=== PATIENT | male | born 1955 | race Caucasian/White ===

== ENCOUNTER 2023-05-08 18:22 | Inpatient (IN) | payer MEDICARE, OTHER ==
[~2023-05-08] VITALS: Ht 182.9 cm; Wt 98.5 kg
[~2023-05-08 18:22] MED LIST: CARDIZEM CD120 MG PO; CETIRIZINE; EXCEDRIN 250 MG1 TAB PO; FLONASE NASAL S16 GM NS; VICODIN 5/5001 UDTAB PO; WARFARIN SODIUM2 MG PO
[2023-05-14] VITALS (8 sets, daily range): BP systolic 113–126; BP diastolic 71–84; PULSE 106–111; TEMP 97.7–98.6
--- NOTE | 2023-05-14 09:06 | NUR ---
PT ON THE FLOOR
--- NOTE | 2023-05-14 09:42 | NUR ---
PT CHANGED INTO GOWN AND PERSONAL BELONGINGS IN ROOM. ASSESSMENTS DONE. PT DENEIS PAIN OR NEEDS AT THIS TIME. RESPIRATORY AT BEDSIDE FOR EKG. THIS NURSE ATTEMPT IV 2 TIMES WITH NOT SUCCESS, SEA KAYAKING GUIDE NOTIFIED AND WILL ATTEMPT. PT BED IN LOWEST POSITION, CALL LIGHT IN REACH.
[2023-05-14] MEDS ORDERED: OMEGA-3 FISH1000 MG PO (09:45)
[2023-05-14] MEDS ORDERED: ZYRTEC 10MG10 MG PO (09:46)
[2023-05-14] MEDS ORDERED: HCTZ 25MG TAB25 MG PO (09:47)
[2023-05-14] MEDS ORDERED: MICARDIS20 MG PO (09:47)
[2023-05-14] MEDS ORDERED: PRADAXA 150MG150 MG PO (09:50)
[2023-05-14] MEDS ORDERED: CRESTOR20 MG PO (09:50)
[2023-05-14] MEDS ORDERED: K-TAB20 PO (09:51)
[2023-05-14] MEDS ORDERED: GLUCOPHAGE XR750 MG PO (09:52)
[2023-05-14] MEDS ORDERED: ZYLOPRIM 300MG300 MG PO (09:53)
[2023-05-14] MEDS ORDERED: BETAPACE 80MG80 MG PO (09:54)
[2023-05-14] MEDS ORDERED: VITAMIN D362.5 MCG PO (09:55)
[2023-05-14] MEDS ORDERED: CENTRUM SILVER1 CTB PO (09:57)
[2023-05-14] MEDS ORDERED: FLONASEALLERGY NS (09:58)
--- NOTE | 2023-05-14 10:08 | NUR ---
20g started to RH x1 attempt. Pt tolerated well.
[2023-05-14 10:23] LABS: CALCIUM 9.2 mg/dL (8.4-10.2); CREATININE, serum 0.86 mg/dL (0.72-1.25); MAGNESIUM 1.7 mg/dL (1.6-2.6); POTASSIUM 3.9 mmol/L (3.5-4.5)
--- NOTE | 2023-05-14 13:10 | NUR ---
NO ORDERS FOR TIKOSYN AT THIS TIME. YANG CALLED AND ORDERS PUT IN AT THAT TIME.
--- NOTE | 2023-05-14 13:45 | NUR ---
1ST DOSE OF TIKOSYN GIVEN, INTIAL QTC 469. RESPIRATORY CALLED AND NOTIFIED OF REPEAT EKG NEEDED AT 1530. PT DENIES NEEDS AT THIS TIME. BED IN LOWEST POSITION, CALL LIGHT IN REACH
--- NOTE | 2023-05-14 16:34 | NUR ---
NO REPEAT EKG DONE AT THIS TIME. [facility] CALLED AND NOTIFIED. TOLD THIS NURSE THAT HE HAS BEEN BUSY IN THE ER AND WILL BE UP SHORTLY TO COMPLETE IT
--- NOTE | 2023-05-14 18:40 | NUR ---
PT SITTING IN BED ON COMPUTER. PT DENIES NEEDS AT THIS TIME. CALL LIGHT IN REACH, BED IN LOWEST POSITION
--- NOTE | 2023-05-14 18:56 | NUR ---
REPORT GIVEN TO MYESHA ANTONIO
--- NOTE | 2023-05-14 20:18 | NUR ---
PATIENT RESTING IN BED LOOKING AT LAPTOP WITH NO FAMILY PRESENT WITH NO ACUTE DISTRESS NOTED. PATIENT ON ROOM AIR. ASSESSMENT AND MEDICATION ADMINISTRATION COMPLETED AT THIS TIME. PATIENT TOLERATED WELL. PATIENT DENIES ANY NEEDS AT THIS TIME. BED IN LOW POSITION WITH WHEELS LOCKED WITH RAILS UP X2 AND CALL LIGHT WITHIN REACH.
--- NOTE | 2023-05-14 21:02 | NUR ---
PATIENT RESTING IN BED WATCHING LAPTOP WITH NO ACUTE DISTRESS NOTED. PATIENT ON ROOM AIR. TIKSOYN GIVEN PER PATIENT REQUEST. PATIENT TOLERATED WELL. RESPIRATORY NOTIFIED.
[2023-05-15] VITALS (12 sets, daily range): BP systolic 100–122; BP diastolic 63–81; PULSE 94–110; TEMP 97.6–98.1
[2023-05-15 07:38] LABS: CALCIUM 9.1 mg/dL (8.4-10.2); CREATININE, serum 0.79 mg/dL (0.72-1.25); MAGNESIUM 1.8 mg/dL (1.6-2.6); POTASSIUM 3.8 mmol/L (3.5-4.5)
--- NOTE | 2023-05-15 08:07 | NUR ---
Ab Mcleod APRN made aware of most recent QTC. No new medication orders rec'd.
[2023-05-15] MEDS ORDERED: HCTZ 25MG TAB25 MG PO (08:58)
[2023-05-15] MEDS ORDERED: K-TAB20 PO (08:59)
[2023-05-15] MEDS ORDERED: VITAMIN D31000 I1 PO (09:00)
--- NOTE | 2023-05-15 10:07 | NUR ---
Initial visit; Patient thanked Roll Tube Setter for looking in on him and introducing herself. Patient states he is doing ok and thanked Roll Tube Setter for offering God's blessings.
--- NOTE | 2023-05-15 12:03 | NUR ---
Assessment completed this morning. Pt denies pain or needs. Independent in room.
--- NOTE | 2023-05-15 18:58 | NUR ---
Has been independent in room throughout day. Denied pain or needs.
--- NOTE | 2023-05-15 19:00 | NUR ---
PATIENT RESTING IN RECLINER WITH NO ACUTE DISTRESS NOTED. PATIENT ON ROOM AIR. INT TO RIGHT HAND INTACT WITH NO COMPLICATIONS NOTED. TELEMETRY INTACT. PATIENT TAKEN OVER FROM [facility] AT THIS TIME. ALL NEEDS MET. RECLINER LOCKED WITH CALL LIGHT WITHIN REACH.
--- NOTE | 2023-05-15 21:15 | NUR ---
PATIENT RESTING IN RECLINER WATCHING TV WITH NO ACUTE DISTRESS NOTED. PATIENT ON ROOM AIR. ASSESSMENT AND MEDICATION ADMINISTRATION COMPLETED AT THIS TIME. PATIENT TOLERATED WELL. PATIENT REQUESTED ICE AND WATER. BOTH GIVEN. PATIENT DENIES ANY OTHER NEEDS AT THIS TIME. RECLINER LOCKED AND CALL LIGHT WITHIN REACH.
--- NOTE | 2023-05-15 21:21 | NUR ---
RESPIRATORY NOTIFED OF MEDICATION ADMINSITRATION FOR EKG TIME AT THIS TIME.
[2023-05-16] VITALS (9 sets, daily range): BP systolic 114–133; BP diastolic 73–84; PULSE 84–106; TEMP 97.9–98.1
[2023-05-16 07:43] LABS: CALCIUM 9.4 mg/dL (8.4-10.2); CREATININE, serum 0.8 mg/dL (0.72-1.25); MAGNESIUM 1.9 mg/dL (1.6-2.6); POTASSIUM 3.9 mmol/L (3.5-4.5)
--- NOTE | 2023-05-16 07:46 | NUR ---
Patient laying in bed A&Ox4. VSS. IV CDI. Denies pain and discomfort. Patient NPO. Call light within reach
--- NOTE | 2023-05-16 10:35 | NUR ---
disc pad knockout worker met with pt to complete discharge planning. Pt reports he lives with his , Mouna [phone] (home) in [place]. He obtains medications at [facility] and goes through them for PCP needs. He does not have difficulties affording medications. Pt is indpendent with [facility] and uses a CPAP for DME. Pt states he has a DPO[facility] listing Mouna. He reports "you won't be here when I discharge this evening.." when MARLEN asked for his to bring a copy. MARLEN advised nurses can copy this and place it in his chart. Pt intends to return home today. Discharge Plan: Home
--- NOTE | 2023-05-16 19:03 | NUR ---
PATIENT SITTING IN RECLINER LOOKING AT LAPTOP WITH NO ACUTE DISTRESS NOTED. PATIENT ON ROOM AIR. INT INTACT TO RIGHT HAND. TELEMETRY INTACT. PATIENT CARE ASSUMED FROM SHO RN AT THIS TIME. PATIENT TRAY REMOVED FROM ROOM. PATIENT ATE 100%. ALL NEEDS MET. RECLINER LOCKED AND CALL LIGHT WITHIN REACH.
--- NOTE | 2023-05-16 21:30 | NUR ---
PATIENT RESTING IN RECLINER WATCHING [employer] ON LAPTOP WITH NO ACUTE DISTRESS NOTED. PATIENT ON ROOM AIR. ASSESSMENT AND MEDICATION ADMINISTRATION COMPLETED AT THIS TIME. PATIENT TOLERATED WELL. PATIENT DENIES ANY NEEDS AT THIS TIME. RECLINER LOCKED AND CALL LIGHT WITHIN REACH.
--- NOTE | 2023-05-16 21:35 | NUR ---
OSMAN MALDONADO CALLED AT THIS TIME FOR 2 HOUR EKG FOR TIKOSYN ADMINISTRATION.
[2023-05-17] VITALS: BP_SYST 123
[2023-05-17 03:28] VITALS: BP 118/82; PULSE 98; TEMP 97.5
[2023-05-17 04:00] VITALS: BP_SYST 118
[2023-05-17 07:11] VITALS: BP 106/72; PULSE 77; TEMP 97.8
[2023-05-17 07:43] LABS: CALCIUM 9.1 mg/dL (8.4-10.2); CREATININE, serum 0.8 mg/dL (0.72-1.25); MAGNESIUM 2.2 mg/dL (1.6-2.6); POTASSIUM 3.8 mmol/L (3.5-4.5)
[2023-05-17] MEDS ORDERED: TIKOSYN0.25 MG PO (08:47)
[2023-05-17] MEDS ORDERED: TOPROL XL 50MG50 MG PO (08:48)
[2023-05-17 09:00] VITALS: BP_SYST 106
== END 2023-05-17 10:35 | disposition home or self-care (01) | DRG 310 ==
LOC: MEDICAL 05-14 08:51
PROVIDERS: ADMIT Internal Medicine Interventional Cardiology
DX: I48.0 Paroxysmal atrial fibrillation (principal); I10 Essential (primary) hypertension; E11.9 Type 2 diabetes mellitus without complications; E78.5 Hyperlipidemia, unspecified; I83.813 Varicose veins of bilateral lower extremities with pain; M10.9 Gout, unspecified; Z79.84 Long term (current) use of oral hypoglycemic drugs; Z79.899 Other long term (current) drug therapy; Z79.01 Long term (current) use of anticoagulants; Z23 Encounter for immunization